=== PATIENT | male | born 1955 | race Caucasian/White ===

== ENCOUNTER 2024-02-25 05:42 | Day surgery (SDC) | payer OTHER, SELFPAY ==
[2024-02-07 11:16] LABS: Hematocrit 40.5 % (39.0-52.0); Hemoglobin 12.9 g/dL (13.0-18.0); Mean Corp Hgb Conc. 31.9 g/dL (33.0-37.0); Mean Corpuscular Hgb 30.8 pg (27.0-31.0); Mean Corpuscular Volume 96.7 fL (80.0-94.0); Platelet Count 192 10^3/uL (130-400); Red Blood Cell Count 4.19 10^6/uL (4.70-6.10); White Blood Cell Count 5.6 10^3/uL (4.8-10.8)
[2024-02-07 11:41] LABS: Blood Urea Nitrogen 38 mg/dl (9-20); Calcium 9.1 mg/dl (8.4-10.2); Carbon Dioxide 33 mmol/L (22-30); Chloride 102 mmol/L (98-107); Glucose 95 mg/dl (70-99); Potassium 4.2 mmol/L (3.5-5.1); Sodium 141 mmol/L (135-145); eGFR > 60.00
[2024-02-07 13:48] VITALS: BMI 27.5
[2024-02-25] VITALS (7 sets, daily range): BP systolic 118–129; BP diastolic 55–67; BMI 27.5
[2024-02-25] MEDS: NORMOSOL-R/PLASMALYTE-A 1000 IV (06:38)
[2024-02-25] MEDS: TYLENOL 1000 MG PO (06:38)
--- NOTE | 2024-02-25 07:06 | HP.FOC2 ---
Focused History & Physical
Chief Complaint
HPI:
Chief Complaint: RIH
HPI / Indication for Planned Procedure: 68 y/o male intermittent swelling in the right inguinal area. Occasional episodes more painful. Recent outpatient evaluation confirms right inguinal hernia.
Relevant Past Medical History: Other (Asthma, CHF, Depression, HTN, Hypercholesterolemia, Obesity, DM, GERD)
Relevant Social History: Negative
Relevant Family History: Negative
Relevant Past Surgical History: Positive for
Review of Systems
Review of Pertinent Systems: All Systems Negative
Medication
See Medication form for detailed medications: Yes
Medication List (including Herbals & OTC):
albuterol sulfate 90 mcg/actuation aerosol inhaler 2 puff inhalation PRN PRN SOB 02/14/24
atorvastatin 80 mg tablet (Lipitor) 80 mg PO QPM 02/14/24
bupropion HCl 150 mg 24 hr tablet, extended release (Wellbutrin XL) 450 mg PO QPM 02/14/24
fexofenadine 180 mg tablet 180 mg PO QPM 02/14/24
folic acid 1 mg tablet 1 mg PO QPM 02/14/24
triamterene 37.5 mg-hydrochlorothiazide 25 mg capsule 1 cap PO QPM 02/14/24
Medications Reviewed: Yes
Allergies and Reactions
Patient has Allergies: Yes
Noted Allergies and Reactions:
Allergy/AdvReac Type Severity Reaction Status Date / Time
belladonna alkaloids Allergy Unknown Verified 02/25/24 06:19
Penicillins Allergy Rash Verified 02/25/24 06:19
prochlorperazine Allergy [place] Verified 02/25/24 06:19
[From Compazine]
budesonide AdvReac Nasal Verified 02/25/24 06:19
[From Rhinocort Allergy] itching
mometasone furoate AdvReac Nasal Verified 02/25/24 06:19
[From Nasonex] Bleeding
Propellants AdvReac Nasal Uncoded 02/25/24 06:20
Itching
Pertinent Physical Exam
All Other Systems: Negative
Head/Neck: Normal
Lungs: Normal
Heart: Normal
Abdomen: Other (reducible RIH)
Extremities: Normal
Neurological: Normal
Diagnosis / Assessment
68 y/o male presenting for scheduled operative correction of RIH
Plan / Procedure
RAL repair RIH with mesh
Anesthesia/Sedation to be done by Anesthesia Provider: Yes
--- NOTE | 2024-02-25 07:10 | W.SUR.PREOP ---
Pre-Operative Surgical Note
-
I have examined this patient prior to the performance of the scheduled procedure.
The patient's condition is unchanged from the time of the current History and
Physical and the patient is able to undergo the scheduled procedure.
--- NOTE | 2024-02-25 08:51 | W.IMMPOSTOP ---
Surgical Immed Post Op Note
-
Primary Surgeon: Phuc Zimmerman MD
Assisting Surgeon: Candis Lee PA-C
Pre-op Diagnosis: Right inguinal hernia
Post-op Diagnosis: Right inguinal hernia; indirect
Procedure Performed: Robotic assisted laparoscopic GEOVANNI repair right inguinal hernia with mesh; 3D max mid weight extra-large
Anesthesia Type: GETA +0.25% Marcaine
Specimen / Cultures: None
Estimated Blood Loss: 4 mL
Complications: None immediate
Operative Findings: Large right indirect inguinal hernia; 3 fingerbreadth defect estimated. Right direct space normal as well as femoral. Left inguinal region normal. 3D max extra-large mid weight mesh repair. Large lipoma associated with cord
structures as well reduced and excised to facilitate mesh placement.
The assistance of Candis Lee PA-C was required due to the complexity of the procedure. During the procedure Candis Lee PA-C assisted with port placement, robotic instrumentation and suture material exchanges, and closure of the surgical incision
sites. I was present for the entirety of the operative procedure.
--- NOTE | 2024-02-25 08:53 | OR.RPT ---
Operative Report
Operative Report
Date of operative procedure: 02/25/2024
Primary Surgeon: Phuc Zimmerman MD
Assisting Surgeon: Candis Lee PA-C
Pre-op Diagnosis: Right inguinal hernia
Post-op Diagnosis: Right inguinal hernia, indirect
Procedure Performed: Robotic assisted laparoscopic GEOVANNI repair right inguinal hernia with mesh; 3D max extra-large mid weight mesh
Anesthesia Type: GETA +0.25% Marcaine
Specimen / Cultures: None/none
Estimated Blood Loss: 4 mL
Complications: None immediate
Indications for operative procedure: Patient is a 68-year-old male recently seen in outpatient surgical evaluation secondary to a history of intermittent right inguinal swelling. He has occasional episodes where it is painful more difficult to
reduce which occurs every couple weeks. When this happens he is able to lie down and massage the area until the hernia reduces itself alleviating his symptoms. Physical examination confirmed the presence of a readily apparent right inguinal
hernia. After discussion regarding treatment options patient wished to pursue operative correction. We discussed various operative approaches to repair and have elected to proceed with a robotic assisted laparoscopic right inguinal herniorrhaphy
with mesh.
Brief summary of operative Findings: Large right indirect inguinal hernia; 3 fingerbreadth defect estimated. Right direct space normal as well as femoral. Left inguinal region normal. 3D max extra-large mid weight mesh repair. Large lipoma
associated with cord structures as well reduced and excised to facilitate mesh placement.
Operation detail: The patient was identified in the preoperative holding area. I confirmed the surgical site and side with the patient preoperatively which was then marked and initialed by myself. He was interviewed by the anesthesia and nursing
staff then brought back to the operating room. The patient was placed on the operating table in supine position. The bilateral upper extremities were carefully padded and tucked at the side utilizing the arm guard positioning system. Pneumatic
compression boots were on the bilateral lower extremities. Following induction of general endotracheal anesthesia the patient was administered Ancef 2 g IV for prophylactic antibiotic coverage. The patient's anterior abdominal wall was now widely
and sterilely prepped with ChloraPrep and then draped in the usual manner. The surgical timeout was completed and the procedure was confirmed.
I initially proceeded with Veress needle insufflation in the left subcostal midclavicular line location. Once insufflated to 12 mmHg pressure then a left midclavicular line 8 mm trocar was then placed. The robotic scope was inserted, there was no
evidence of iatrogenic injury from access. The Veress needle was withdrawn. An epigastric 8 mm trocar was placed just to the right of the midline. A right midclavicular line 8 mm trocar was placed. The patient was then transition into
Trendelenburg to expose the inguinal/pelvic space and the robot was docked.
At the surgeon console inspection of the pelvis confirmed the presence of a sizable right indirect inguinal defect; estimated 3 fingerbreadth diameter. The direct and femoral spaces were normal. The left inguinal region was unremarkable as well.
There were no additional incidental intra-abdominal findings.
I initially began with creation of a peritoneal flap at the level of the right ASIS to the right medial umbilical ligament. The preperitoneal plane was now established along the length of the flap and developed inferiorly down to the inguinal
space. The medial dissection proceeded until the notch of the pubic symphysis was exposed at the midline followed by Mich's ligament on the right side. Mich's ligament was now cleared through the direct and femoral space; both of which were
normal. The underside of Mich's ligament was exposed as well. The peritoneal flap was now mobilized laterally down to the internal ring. The hernia sac was then grasped and begun to be reduced out of the inguinal canal from an anterior lateral
to anterior medial approach. I carefully continued to reduce the hernia sac off of the cremasteric fibers and cord contents all the way to the apex of the hernia sac. Next the hernia sac was now reduced off of its posterior attachments with
identification of the vas and the spermatic cord vessels. The hernia sac dissection continued back proximally past the turn in the right vas deferens and then overlying the right iliac space to meet up with the medial dissection. The posterior
dissection continued until there was wide separation between the vas and the spermatic cord vessels. The dissection continued posterior laterally for full exposure of the myopectineal orifice. The cord structures were further evaluated and there
is a fairly sizable lipomatous protrusion of the inguinal canal. This was fully reduced and carefully excised to facilitate mesh placement.
With the myopectineal orifice now completely exposed hemostasis was confirmed. A 3D max extra-large mid weight mesh was utilized for repair. The mesh was positioned parallel to the ileopubic tract. It was secured at 2 separate locations inferior
medially on Mich's ligament with 2 simple interrupted 2-0 Vicryl sutures. The patient was now begun to be taken out of Trendelenburg to confirm that the posterior aspect of the mesh was lying flat and that there was no shelling or undermining of
the mesh by the peritoneal edge. The peritoneal flap was now closed with a 2-0 Monocryl STRATAFIX spiral suture with a running [place] type stitch.
A flexible suction catheter was placed through an 8 mm trocar and introduced into the peritoneal flap to evacuate the air out of the preperitoneal space. This again confirmed good positioning of the inguinal hernia mesh. There was no shelling or
folding of the mesh and no undermining and mesh by the peritoneal edge. The peritoneal covering of the mesh was completely intact.
At this point the robot was undocked. All sponge instrument and needle counts were confirmed to be correct x 2. The CO2 insufflation was now carefully evacuated out of the abdominal cavity. The trocar sites were removed as well as the flexible
suction catheter. Skin was closed with 4-0 Monocryl. Sterile surgical glue dressings were applied. The patient tolerated the procedure well and was transferred to the recovery unit for routine postoperative monitoring.
The assistance of Candis Lee PA-C was required due to complexity of surgery. During the procedure Candis Lee PA-C assisted with port placement, robotic instrumentation and suture material exchanges as well as closure of the surgical sites. I
was present for the entirety of the operative procedure.
== END 2024-02-25 10:45 | disposition home or self-care (01) ==
LOC: SDS 05:42
PROVIDERS: ATTENDING PHYSICIAN Surgery; FAMILY PHYSICIAN Internal Medicine
DX: K40.90 Unilateral inguinal hernia, without obstruction or gangrene, not specified as recurrent (principal)
CPT/HCPCS: 49650; 36415; 80048; 85027; 87070; 93005; C1781